=== PATIENT | female | born 1970 | race Caucasian/White ===

== ENCOUNTER → 2018-05-01 18:20 | Outpatient (CLI) | payer BC, SELFPAY ==
[2018-05-01 18:57] LABS: Appearance Urine UA CLEAR; Bilirubin Urine UA NEGATIVE (NEGATIVE); Color Urine UA YELLOW; Glucose Urine UA TRACE g/dL (Normal); Ketones Urine UA NEGATIVE (NEGATIVE); Leukocyte Esterase Urine UA NEGATIVE (NEGATIVE); Nitrite Urine UA POSITIVE (Negative); Occult Blood Urine UA NEGATIVE (Negative); Protein Urine UA NEGATIVE (Negative); Urobilinogen Urine UA 0.2 E.U./dL (0.2); pH Urine UA 6.5 (4.5-8.0)
[2018-05-01 18:59] LABS: Bacteria Urine None Seen
[2018-05-01 19:19] LABS: Culture Indicated Urine Specimen Cultured; RBC Urine 0-1/HPF (0-5/HPF); Squamous Epithelial Cell Urine 0-1 /HPF; WBC Urine 0-1/HPF (0-5/HPF)
== END ==
PROVIDERS: PCP Family Medicine; Visit Provider Family Medicine
DX: R39.9 Unspecified symptoms and signs involving the genitourinary system (principal)
CPT/HCPCS: 81003; 81015; 87086

== ENCOUNTER → 2018-07-10 08:18 | Outpatient (CLI) | payer BC, SELFPAY ==
[2018-07-10 09:08] LABS: Add Manual Diff / Slide Review NO; Basophils Absolute Auto 100 /uL (0-100); Eosinophils Absolute Auto 100 /uL (0-450); Hematocrit 40.1 % (36-46); Hemoglobin 13.4 g/dL (12.0-16.0); Lymphocytes Absolute Auto 1700 /uL (1100-4500); Lymphocytes Percent Auto 29.9 % (25-40); Mean Corpuscular HGB Conc 33.5 % (30-36); Mean Corpuscular Hemoglobin 29.9 PG (26-34); Mean Corpuscular Volume 89.4 fL (80-100); Monocytes Absolute Auto 300 /uL (0-900); Monocytes Percent Auto 5.9 % (3-14); Neutrophils Absolute Auto 3500 /uL (1500-7000); Neutrophils Percent Auto 62.2 % (50-75); Platelet Count 292 X10^3/uL (150-400); Red Blood Cell Count 4.48 X10^6/uL (4.0-5.2); White Blood Cell Count 5.6 X10^3/uL (4.5-11.0)
[2018-07-10 09:19] LABS: Alanine Aminotransferase 32 IU/L (9-52); Albumin 4.3 g/dL (3.5-5.0); Albumin Globulin Ratio 1.5 (1.0-2.8); Alkaline Phosphatase 51 U/L (38-126); Aspartate Aminotransferase 29 IU/L (14-36); BUN Creatinine Ratio 21.4 (6-22); Bilirubin Total 0.7 mg/dL (0.2-1.3); Blood Urea Nitrogen 15 mg/dL (7-17); Calcium 8.8 mg/dL (8.4-10.2); Carbon Dioxide 28 mmol/L (22-32); Chloride 103 mmol/L (98-107); Cholesterol 205 mg/dL (140-199); Estimated Glomerular Filt Rate > 60.0 mL/min (>60); Globulin 2.9 g/dL (1.7-4.1); Glucose 89 mg/dL (70-100); HDL Cholesterol 60 mg/dL (40-60); HEMOLYSIS < 15 (0-50); LDL Cholesterol Calculated 133 mg/dL (<100); Potassium 4.1 mmol/L (3.4-5.1); Sodium 139 mmol/L (137-145); Total Protein 7.2 g/dL (6.3-8.2); Triglycerides 61 mg/dL (35-150)
[2018-07-10 09:34] LABS: Follicle Stimulating Hormone 5.02 mIU/mL
[2018-07-10 09:54] LABS: Thyroid Stimulating Hormone 1.12 uIU/mL (0.47-4.68)
== END ==
PROVIDERS: PCP Family Medicine; Visit Provider Family Medicine
DX: F32.9 Major depressive disorder, single episode, unspecified (principal)
CPT/HCPCS: 36415; 80053; 80061; 83001; 84443; 85025

== ENCOUNTER → 2018-08-25 16:49 | Outpatient (CLI) | payer BC, SELFPAY ==
--- NOTE | 2018-08-25 | DI.MG.S_ITS ---
BILATERAL DIGITAL SCREENING MAMMOGRAM 3D/2D WITH CAD: 08/25/2018 CLINICAL: Routine screening. Family history of breast cancer. Comparison is made to exams dated: 09/28/2015 mammogram - [facility], 07/24/2017 [facility], and 07/14/2014 mammogram - [facility]. The tissue of both breasts is extremely dense, which lowers the sensitivity of mammography. Current study was also evaluated with a Computer Aided Detection (CAD) system. No significant masses, calcifications, or other findings are seen in either breast. There has been no significant interval change. IMPRESSION: NEGATIVE There is no mammographic evidence of malignancy. A 1 year screening mammogram is recommended. This exam was interpreted at Station ID: [id number]. NOTE: For mammograms, a report in lay terms will be sent to the patient. Approximately 15% of breast malignancies will not be visualized mammographically. In the management of a palpable breast mass, a negative mammogram must not discourage biopsy of a clinically suspicious lesion. Electronically Signed By: Shelby perea/oanh:08/25/2018 17:11:14 letter sent: Normal Exam ACR BI-RADS Category 1: Negative 3341F
== END ==
PROVIDERS: PCP Family Medicine; Visit Provider Family Medicine
DX: Z12.31 Encounter for screening mammogram for malignant neoplasm of breast (principal)
CPT/HCPCS: 77063; 77067

== ENCOUNTER → 2019-07-23 08:11 | Outpatient (CLI) | payer BC, SELFPAY ==
[2019-07-23 09:35] LABS: Hematocrit 42.7 % (36-46); Hemoglobin 14.5 g/dL (12.0-16.0); Mean Corpuscular HGB Conc 33.9 % (30-36); Mean Corpuscular Volume 88.3 fL (80-100); Platelet Count 261 X10^3/uL (150-400); Red Blood Cell Count 4.83 X10^6/uL (4.0-5.2); Red Cell Distribution Width 12.8 % (11.6-14.8); White Blood Cell Count 6.8 X10^3/uL (4.5-11.0)
[2019-07-23 09:52] LABS: Alanine Aminotransferase 12 IU/L (<35); Albumin 5.1 g/dL (3.5-5.0); Albumin Globulin Ratio 1.5 (1.0-2.8); Alkaline Phosphatase 53 U/L (38-126); Aspartate Aminotransferase 25 IU/L (14-36); BUN Creatinine Ratio 25.7 (6-22); Bilirubin Total 0.7 mg/dL (0.2-1.3); Blood Urea Nitrogen 18 mg/dL (7-17); Calcium 9.6 mg/dL (8.4-10.2); Carbon Dioxide 28 mmol/L (22-32); Chloride 104 mmol/L (98-107); Cholesterol 216 mg/dL (140-199); Estimated Glomerular Filt Rate > 60.0 mL/min (>60); Globulin 3.3 g/dL (1.7-4.1); Glucose 94 mg/dL (70-100); HDL Cholesterol 55 mg/dL (40-60); HEMOLYSIS < 15 (0-50); LDL Cholesterol Calculated 147 mg/dL (<100); Potassium 4.1 mmol/L (3.4-5.1); Sodium 139 mmol/L (137-145); Total Protein 8.4 g/dL (6.3-8.2); Triglycerides 68 mg/dL (35-150)
[2019-07-23 11:39] LABS: Urine N gonorrhoeae NOT DETECTED
[2019-07-23 11:51] LABS: Hepatitis B Surface Antigen NEGATIVE s/c (NEGATIVE)
[2019-07-23 11:56] LABS: Urine Chlamydia NOT DETECTED
[2019-07-23 12:10] LABS: HIV 1 & 2 Ab/Ag 4th Gen Combo NEGATIVE (NEGATIVE); Hep C Virus Ab w/Reflex Quant NEGATIVE s/c (NEGATIVE)
[2019-07-25 23:07] LABS: RPR Screen Nonreactive (Nonreactive)
[2019-07-26 14:38] LABS: Hepatitis B Core Antibody Nonreactive (Nonreactive)
== END ==
PROVIDERS: PCP Nurse Practitioner Family; Referring Provider Nurse Practitioner Family; Visit Provider Nurse Practitioner Family
DX: Z00.00 Encounter for general adult medical examination without abnormal findings (principal); Z20.2 Contact with and (suspected) exposure to infections with a predominantly sexual mode of transmission; Z13.6 Encounter for screening for cardiovascular disorders
CPT/HCPCS: 36415; 80053; 80061; 85027; 86592; 86704; 86803; 87340; 87389; 87491; 87591

== ENCOUNTER → 2019-11-18 12:40 | Outpatient (CLI) | payer BC, SELFPAY ==
--- NOTE | 2019-11-18 12:53 | DI.RAD.S_ITS ---
PROCEDURE: XR CHEST 2V INDICATIONS: Increasing SOB TECHNIQUE: 2 views of the chest were acquired. COMPARISON: None. FINDINGS: Surgical changes and devices: None. Lungs and pleura: Lungs are clear. No pleural effusions or pneumothorax. Mediastinum: Mediastinal contours are normal. Heart size is normal. Bones and chest wall: No suspicious bony abnormalities. Soft tissues appear unremarkable. IMPRESSION: No acute cardiopulmonary process demonstrated radiographically. Dictated by: Trevor Lutz M.D. on 11/18/2019 at 13:32 Approved by: Trevor Lutz M.D. on 11/18/2019 at 13:33
[2019-11-21 10:35] LABS: COVID19 Sendout Not Detected (Not Detected)
== END ==
PROVIDERS: PCP Nurse Practitioner Family; Referring Provider Nurse Practitioner; Visit Provider Nurse Practitioner
DX: R06.02 Shortness of breath (principal)
CPT/HCPCS: 71046; 87635

== ENCOUNTER → 2020-02-18 08:37 | Outpatient (CLI) | payer BC, SELFPAY ==
--- NOTE | 2020-02-18 08:38 | DI.MG.S_ITS ---
BILATERAL DIGITAL SCREENING MAMMOGRAM 3D/2D WITH CAD: 02/18/2020 CLINICAL: Routine screening. Family history of breast cancer. Comparison is made to exams dated: 08/25/2018 mammogram, 07/24/2017 mammogram - [facility], and 09/28/2015 mammogram - [facility]. The tissue of both breasts is extremely dense, which lowers the sensitivity of mammography. Current study was also evaluated with a Computer Aided Detection (CAD) system. No significant masses, calcifications, or other findings are seen in either breast. There has been no significant interval change. IMPRESSION: NEGATIVE There is no mammographic evidence of malignancy. A 1 year screening mammogram is recommended. This exam was interpreted at Station ID: [id number]. NOTE: For mammograms, a report in lay terms will be sent to the patient. Approximately 15% of breast malignancies will not be visualized mammographically. In the management of a palpable breast mass, a negative mammogram must not discourage biopsy of a clinically suspicious lesion. Electronically Signed By: Karlos borden/oanh:02/20/2020 07:59:48 letter sent: Normal Exam ACR BI-RADS Category 1: Negative 3341F
== END ==
PROVIDERS: PCP Nurse Practitioner Family; Referring Provider Nurse Practitioner Family; Visit Provider Nurse Practitioner Family
DX: Z12.31 Encounter for screening mammogram for malignant neoplasm of breast (principal); Z80.3 Family history of malignant neoplasm of breast
CPT/HCPCS: 77063; 77067

== ENCOUNTER → 2020-02-25 15:40 | Outpatient (CLI) | payer BC, SELFPAY ==
[2020-02-27 07:56] LABS: COVID19 Sendout Not Detected (Not Detect)
== END ==
PROVIDERS: PCP Nurse Practitioner Family; Visit Provider Physician Assistant
DX: Z01.812 Encounter for preprocedural laboratory examination (principal)
CPT/HCPCS: 87635

== ENCOUNTER 2020-02-28 12:42 | Day surgery (SDC) | payer BC, SELFPAY ==
[2020-02-28 12:57] VITALS: BP 99/67; PULSE 71; RESP 16; TEMP 36.4; O2SAT 99; BMI 19.5
[2020-02-28] MEDS: SODIUM CHLORIDE 0.9% 1,000 ML 200 ML IV ×2 (13:14→14:53)
--- NOTE | 2020-02-28 13:34 | P.HP_ITS ---
History of Present Illness History of Present Illness Date Patient Seen: 02/28/20 Time Patient Seen: 13:34 Chief complaint: [facility] [place]ative: This is a 49-year-old woman who is here for her 1st screening colonoscopy. She denies any symptoms of blood in the stool, melena, unexplained abdominal pain, unexplained weight loss, denies family history of colon cancer colon polyps. She says she is otherwise well. She does take metoprolol for PVCs. She takes medication for depression. She has had a . She denies any other significant medical problems on medical history. ROS: Thirteen system review is otherwise negative other than as mentioned below and in HPI. PE: GENERAL: Well groomed and cooperative. Appears stated age. Answers questions promptly and appropriately. Vital signs noted. HENT: Normocephalic, atraumatic. Hearing intact. EYES: Conjunctiva pink, sclera white, no periorbital swelling. CARDIOVASCULAR: Regular rate. No pedal edema. RESPIRATORY: Non-tachypneic, breathing comfortably on room air. GASTROINTESTINAL: Abdomen soft and non-distended GENITALURINARY: No flank tenderness. MUSCULOSKELETAL: Equal tone and mass bilaterally. SKIN: Warm, dry, soft, appropriate color for ethnicity. No other lesions, rashes, or wounds. NEURO: Alert and Oriented X 3. No gross sensory deficits, or cognitive issues. PSYCH: Appropriate affect and mood. Patient History Medical History Anxiety (Acute 2006) Depression (Acute 2006) Encounter for wellness examination in adult (Acute) Migraine without aura (Acute 1999) Possible exposure to STD (Acute) PVC (premature ventricular contraction) (Acute 2006) Surgical History Status post delivery (10/24/03) Family & Social History Family History Father Age: 77 Hyperlipidemia Grandfather Alzheimer's dementia without behavioral disturbance, unspecified timing of dementia onset Cerebrovascular accident (CVA), unspecified mechanism Grandmother Malignant neoplasm of female breast, unspecified laterality, unspecified site of breast Sister Age: 44 Anxiety Social History: household members spouse Tobacco & Substance use: Smoking Status Never smoker alcohol intake never Substance Use Type does not use Meds Home Medications and Allergies Home Medications Medication Instructions Recorded Confirmed Type valacyclovir 500 mg tablet 500 mg PO BID PRN #30 tab 07/20/19 02/28/20 Rx albuterol sulfate 90 mcg/actuation 2 puff INHALATION Q6H PRN #8 gram 11/22/19 02/28/20 Rx aerosol inhaler metoprolol tartrate 25 mg tablet 12.5 mg PO QDAY #45 tab 01/05/20 02/28/20 Rx sertraline 100 mg tablet 50 mg PO QDAY #45 tab 01/05/20 02/28/20 Rx Allergies Allergy/AdvReac Type Severity Reaction Status Date / Time aspartame [ASPARTAME] Allergy Unknown Verified 02/28/20 12:56 codeine [CODEINE] Allergy Unknown Verified 02/28/20 12:56 erythromycin base Allergy Unknown Verified 02/28/20 12:56 [ERYTHROMYCIN BASE] Exam Vital Signs (past 8 hours): - 02/28/20 12:57 Temperature 97.5 F L Pulse Rate 71 Respiratory Rate 16 Blood Pressure 99/67 Pulse Oximetry 99 Oxygen Delivery Method Room Air Oxygen Flow Rate 0 Assessment & Plan Assessment and plan (1) At average risk for colon cancer: Status: Acute Assessment & Plan narrative: Risks and benefits of screening colonoscopy and possible polypectomy were discussed with the patient including risk of bleeding, perforation, need for additional procedures, risks of anesthesia. The patient desires to proceed with the colonoscopy procedure. COVID-19 COVID-19 status: Negative Result date/Date tested (Pos, Neg/Pending): 02/25/20 Time Spent With Patient Time with patient: 15-24 minutes Quality VTE Deep Vein Thrombosis/Pulmonary Embolism Present on Admission: No
--- NOTE | 2020-02-28 13:38 | PM.OP.ENDO ---
Operative Date/Time/Diagnoses Date of procedure: 02/28/20 Time of procedure: 13:38 Pre-op diagnosis: Average risk for colon cancer Post-op diagnosis: other (Very tortuous colon, no polyps ) Procedure & Clinicians Study performed: Colonoscopy Procedural sedation performed by the endoscopist Same procedure as scheduled: Yes Indications: Average risk for colon cancer, first screening colonoscopy Surgeon: Shanda Wolf Procedure Notes SCOAP/Timeout: Performed Procedure in detail: The patient was brought to the room and placed in left lateral decubitus position with all bony prominences padded. A time-out was performed and then the patient was given procedural sedation starting with 2 mg of Versed and 100 mcg of fentanyl. An additional 50 micro g of fentanyl was given during the procedure. Vitals were monitored throughout the procedure and remained stable. Once adequately sedated, the procedure was begun. A rectal exam was performed revealing no abnormalities. The colonoscope was then introduced to the rectum and advanced to the cecum in the usual fashion. The cecum was identified by the appendiceal orifice, the mucosal tri-fold, and the ileocecal valve. The scope was then retracted while rotating side to side and examining each mucosal fold. The colon was very tortuous, with many redundant folds and turns. At the conclusion of the procedure retroflexion was performed and small grade 1-2 internal hemorrhoids without stigmata of bleeding were seen. The scope was then withdrawn from the rectum the procedure was concluded. The patient tolerated the procedure well and was transferred to the PACU in stable condition. Scope withdrawal time: 8 Sedation minutes: 20 Findings: other findings (Very tortuous colon, otherwise normal) Specimen(s): none sent Complications: none Impression: Tortuous colon, otherwise normal Post-procedure Recommendations: Colonscopy in 10 years (Unless concerning symptoms for colorectal disorder arise) Follow up: as needed Disposition: PACU
[2020-02-28] MEDS: MIDAZOLAM 5 MG/5 ML VIAL IV (13:39)
[2020-02-28] MEDS: fentaNYL 250 MCG/5 ML INJ IV (13:51)
[2020-02-28 14:06] VITALS: BP 94/57; PULSE 68; RESP 10; TEMP 36.4; O2SAT 97
[2020-02-28 14:10] VITALS: BP 92/60; PULSE 73; RESP 16; O2SAT 98
[2020-02-28 14:15] VITALS: BP 94/53; PULSE 68; RESP 14; TEMP 36.2; O2SAT 97
[2020-02-28 14:39] VITALS: BP 90/54; PULSE 64; RESP 16; TEMP 36.7; O2SAT 98
--- NOTE | 2020-02-28 14:40 | SUR.PHASEII ---
Patient's BP 90/54 but patient is asymptomatic and has hypotension on a normal basis, per patient. Tolerating juice and coffee. Will recheck BP prior to discharge.
--- NOTE | 2020-02-28 14:48 | SUR.PHASEII ---
Recheck of BP 85/57. Asymptomatic. Second bag of Normal saline started.
[2020-02-28 15:13] VITALS: BP 101/68; PULSE 73; RESP 15; O2SAT 100
== END 2020-02-28 15:15 | disposition home or self-care (01) ==
PROVIDERS: PCP Nurse Practitioner Family; Referring Provider Nurse Practitioner Family; Visit Provider Surgery
PROC: 0DJD8ZZ Inspection of Lower Intestinal Tract, Via Natural or Artificial Opening Endoscopic (ICD-10-PCS; CPT 45378; principal; 2020-02-28 13:45)
DX: Z12.11 Encounter for screening for malignant neoplasm of colon (principal); F32.9 Major depressive disorder, single episode, unspecified; K64.0 First degree hemorrhoids
CPT/HCPCS: 45378; 99152; J2250; J3010

== ENCOUNTER → 2021-01-04 08:19 | Outpatient (CLI) | payer BC, SELFPAY | PROVIDERS: PCP Nurse Practitioner Family; Visit Provider Nurse Practitioner | DX: N39.0 Urinary tract infection, site not specified (principal) | CPT/HCPCS: 87077; 87086; 87147 ==

== ENCOUNTER → 2021-02-25 08:47 | Outpatient (CLI) | payer BC, SELFPAY ==
[2021-02-25 09:28] LABS: Hematocrit 40.4 % (36-46); Hemoglobin 13.6 g/dL (12.0-16.0); Mean Corpuscular HGB Conc 33.6 % (30-36); Mean Corpuscular Hemoglobin 30.1 PG (26-34); Mean Corpuscular Volume 89.5 fL (80-100); Platelet Count 271 X10^3/uL (150-400); Red Blood Cell Count 4.52 X10^6/uL (4.0-5.2); Red Cell Distribution Width 12.9 % (11.6-14.8); White Blood Cell Count 6.2 X10^3/uL (4.5-11.0)
[2021-02-25 10:14] LABS: Alanine Aminotransferase 15 IU/L (<35); Albumin 4.5 g/dL (3.5-5.0); Albumin Globulin Ratio 1.8 (1.0-2.8); Alkaline Phosphatase 62 U/L (38-126); Aspartate Aminotransferase 24 IU/L (14-36); BUN Creatinine Ratio 24.7 (6-22); Bilirubin Total 0.4 mg/dL (0.2-1.3); Blood Urea Nitrogen 18 mg/dL (7-17); Calcium 9.4 mg/dL (8.4-10.2); Carbon Dioxide 27 mmol/L (22-32); Chloride 107 mmol/L (98-107); Cholesterol 214 mg/dL (140-199); Estimated Glomerular Filt Rate > 60.0 mL/min (>60); Globulin 2.5 g/dL (1.7-4.1); Glucose 91 mg/dL (70-100); HDL Cholesterol 52 mg/dL (40-60); HEMOLYSIS < 15 (0-50); LDL Cholesterol Calculated 145 mg/dL (<100); Potassium 4.3 mmol/L (3.4-5.1); Sodium 141 mmol/L (137-145); Triglycerides 87 mg/dL (35-150)
[2021-02-25 10:41] LABS: TSH w/ Reflex to FT4 1.23 uIU/mL (0.47-4.68)
== END ==
PROVIDERS: PCP Nurse Practitioner Family; Referring Provider Nurse Practitioner Family; Visit Provider Nurse Practitioner Family
DX: Z00.00 Encounter for general adult medical examination without abnormal findings (principal); F32.9 Major depressive disorder, single episode, unspecified; F41.9 Anxiety disorder, unspecified; Z13.6 Encounter for screening for cardiovascular disorders
CPT/HCPCS: 36415; 80053; 80061; 84443; 85027

== ENCOUNTER → 2021-03-22 08:07 | Outpatient (CLI) | payer BC, SELFPAY ==
--- NOTE | 2021-03-22 08:07 | DI.MG.S_ITS ---
BILATERAL DIGITAL SCREENING MAMMOGRAM 3D/2D WITH CAD: 03/22/2021 CLINICAL: Routine screening. Family history of breast cancer. Comparison is made to exams dated: 02/18/2020 mammogram, 07/24/2017 mammogram, and 08/25/2018 mammogram - [facility]. The tissue of both breasts is extremely dense, which lowers the sensitivity of mammography. Current study was also evaluated with a Computer Aided Detection (CAD) system. No significant masses, calcifications, or other findings are seen in either breast. There has been no significant interval change. IMPRESSION: NEGATIVE There is no mammographic evidence of malignancy. A 1 year screening mammogram is recommended. This exam was interpreted at Station ID: [id number]. NOTE: For mammograms, a report in lay terms will be sent to the patient. Approximately 15% of breast malignancies will not be visualized mammographically. In the management of a palpable breast mass, a negative mammogram must not discourage biopsy of a clinically suspicious lesion. Electronically Signed By: Piero marquez/oanh:03/22/2021 09:39:19 letter sent: Normal Exam ACR BI-RADS Category 1: Negative 3341F
== END ==
PROVIDERS: PCP Nurse Practitioner Family; Referring Provider Nurse Practitioner Family; Visit Provider Nurse Practitioner Family
DX: Z12.31 Encounter for screening mammogram for malignant neoplasm of breast (principal); Z80.3 Family history of malignant neoplasm of breast
CPT/HCPCS: 77063; 77067

== ENCOUNTER → 2021-09-17 13:24 | Outpatient (CLI) | payer BC, SELFPAY ==
--- NOTE | 2021-09-17 13:27 | DI.RAD.S_ITS ---
PROCEDURE: XR SHOULDER RT MIN 2V INDICATIONS: eval R shoulder pain/decrease ROM refractory to PT TECHNIQUE: 3 views of the shoulder were acquired. COMPARISON: None. FINDINGS: Bones: No fractures or dislocations. No suspicious bony lesions. Visualized ribs appear intact. Soft tissues: No suspicious soft tissue calcifications. IMPRESSION: No acute radiographic findings. Dictated by: Shelby Stanford M.D. on 09/17/2021 at 15:46 Approved by: Shelby Stanford M.D. on 09/17/2021 at 15:48
== END ==
PROVIDERS: PCP Nurse Practitioner Family; Referring Provider Registered Nurse Diabetes Educator; Visit Provider Registered Nurse Diabetes Educator
DX: M25.511 Pain in right shoulder (principal)
CPT/HCPCS: 73030

== ENCOUNTER → 2021-09-21 08:26 | Outpatient (CLI) | payer BC, SELFPAY ==
[2021-09-21 09:25] LABS: Hematocrit 37.8 % (36-46); Mean Corpuscular HGB Conc 34.4 % (30-36); Mean Corpuscular Hemoglobin 29.8 PG (26-34); Mean Corpuscular Volume 86.5 fL (80-100); Platelet Count 256 X10^3/uL (150-400); Red Blood Cell Count 4.38 X10^6/uL (4.0-5.2); Red Cell Distribution Width 13.4 % (11.6-14.8); White Blood Cell Count 5.4 X10^3/uL (4.5-11.0)
[2021-09-21 10:04] LABS: Alanine Aminotransferase 24 IU/L (<35); Albumin 4.9 g/dL (3.5-5.0); Albumin Globulin Ratio 1.6 (1.0-2.8); Alkaline Phosphatase 63 U/L (38-126); Aspartate Aminotransferase 30 IU/L (14-36); BUN Creatinine Ratio 25.3 (6-22); Bilirubin Total 0.7 mg/dL (0.2-1.3); Blood Urea Nitrogen 21 mg/dL (7-17); Calcium 9.2 mg/dL (8.4-10.2); Carbon Dioxide 30 mmol/L (22-32); Chloride 106 mmol/L (98-107); Cholesterol 265 mg/dL (140-199); Estimated Glomerular Filt Rate > 60 mL/min (>60); Glucose 96 mg/dL (70-100); HDL Cholesterol 56 mg/dL (40-60); HEMOLYSIS < 15 (0-50); LDL Cholesterol Calculated 189 mg/dL (<100); Sodium 142 mmol/L (137-145); Total Protein 7.9 g/dL (6.3-8.2); Triglycerides 101 mg/dL (35-150)
== END ==
PROVIDERS: PCP Nurse Practitioner Family; Referring Provider Registered Nurse Diabetes Educator; Visit Provider Registered Nurse Diabetes Educator
DX: Z00.00 Encounter for general adult medical examination without abnormal findings (principal); E78.2 Mixed hyperlipidemia; F32.9 Major depressive disorder, single episode, unspecified; F41.9 Anxiety disorder, unspecified
CPT/HCPCS: 36415; 80053; 80061; 85027

== ENCOUNTER → 2021-10-11 08:18 | Outpatient (CLI) | payer BC, SELFPAY ==
--- NOTE | 2021-10-11 | DI.RAD.S_ITS ---
PROCEDURE: FL SHOULDER INJECTION MR/CT RT INDICATIONS: RIGHT SHOULDER PAIN COMPARISON: [facility], MR, MR SHOULDER RT W CON, 10/11/2021, 9:07. TECHNIQUE: The indications, alternatives, benefits, risks, and complications of the procedure were explained to the patient. Written informed consent was obtained and placed in the chart. The shoulder was examined fluoroscopically and a site for needle placement chosen for entry into the glenohumeral joint from an anterior approach. The skin was prepped and draped in a sterile fashion, and 1% lidocaine infiltrated from skin down to joint capsule. A spinal needle was inserted into the glenohumeral joint, and a small amount of iodinated contrast media injected to confirm intra-articular placement of the needle tip. This was followed by approximately 12 mL dilute solution of a gadolinium containing MR contrast agent. The needle was removed and a dressing was applied. The patient was given postprocedural instructions and sent to the MR suite for MR imaging. FINDINGS: A single fluoroscopic spot image demonstrates intra-articular location of injected iodinated contrast. IMPRESSION: Successful fluoroscopically guided administration of dilute Gadolinium solution into the shoulder joint for MR arthrogram. Dictated by: Uziel Hill M.D. on 10/11/2021 at 10:32 Approved by: Uziel Hill M.D. on 10/11/2021 at 10:33
--- NOTE | 2021-10-11 08:19 | DI.MRI.S_ITS ---
PROCEDURE: MR SHOULDER RT W CON INDICATIONS: eval R shoulder pain/decrease ROM refractory to PT TECHNIQUE: After the administration of 12 mL of dilute intra-articular Gadolinium contrast, oblique coronal T1 and T2 spin echo with fat saturation, oblique sagittal T1 spin echo with and without fat saturation, oblique sagittal T2 fast spin echo with fat saturation, axial T1 spin echo with fat saturation through the shoulder. COMPARISON: [facility], CR, XR SHOULDER RT MIN 2V, 09/17/2021, 13:43. FINDINGS: Image quality: Excellent. Rotator cuff: There is mild T2 signal elevation within the supraspinatus and infraspinatus tendons at the humeral insertion sites extending to the musculotendinous junctions, indicating tendinopathy. Superimposed low-grade small bursal surface tear of the mid supraspinatus tendon at the humeral insertion site. Superimposed small intrasubstance low-grade tearing of the posterior supraspinatus tendon at the humeral insertion site. Superimposed low-grade partial-thickness intrasubstance tearing of the anterior infraspinatus tendon at the humeral insertion site. Subscapularis and teres minor tendons are intact. No rotator cuff atrophy. Bones and bursae: No bone marrow contusions or fractures. Mild acromioclavicular joint degeneration. The acromion demonstrates conventional anatomy, without an os acromiale. Small amount of subacromial fluid is present. Capsule and soft tissues: The labrum and glenohumeral ligaments appear intact. The long head of the biceps tendon demonstrates normal location and morphology. The rotator interval appears normal, without fibrosis. The coracohumeral ligament is of normal thickness. No intra-articular bodies. IMPRESSION: 1. Supraspinatus and infraspinatus tendinopathy with superimposed low-grade partial-thickness intrasubstance tears. No full-thickness rotator cuff tear. 2. Mild subacromial bursitis. 3. Mild acromioclavicular joint osteoarthritis. Dictated by: Uziel Hill M.D. on 10/11/2021 at 10:46 Approved by: Uziel Hill M.D. on 10/11/2021 at 10:48
== END ==
PROVIDERS: PCP Registered Nurse Diabetes Educator; Referring Provider Registered Nurse Diabetes Educator; Visit Provider Registered Nurse Diabetes Educator
DX: M25.511 Pain in right shoulder (principal); S46.811A Strain of other muscles, fascia and tendons at shoulder and upper arm level, right arm, initial encounter; M71.9 Bursopathy, unspecified; M19.011 Primary osteoarthritis, right shoulder
CPT/HCPCS: 23350; 73222; 77002

== ENCOUNTER → 2021-12-11 13:40 | Outpatient (CLI) | payer OTHER, SELFPAY ==
[2021-12-11 17:07] LABS: Follicle Stimulating Hormone 13.3 mIU/mL
== END ==
PROVIDERS: PCP Registered Nurse Diabetes Educator; Referring Provider Registered Nurse Diabetes Educator; Visit Provider Registered Nurse Diabetes Educator
DX: N92.6 Irregular menstruation, unspecified (principal)
CPT/HCPCS: 36415; 83001

== ENCOUNTER → 2022-03-22 08:37 | Outpatient (CLI) | payer OTHER, SELFPAY ==
--- NOTE | 2022-03-22 08:38 | DI.MG.S_ITS ---
BILATERAL DIGITAL SCREENING MAMMOGRAM 3D/2D WITH CAD: 03/22/2022 CLINICAL: Routine screening. Family history of breast cancer. Comparison is made to exams dated: 03/22/2021 mammogram, 02/18/2020 mammogram, 08/25/2018 mammogram, and 07/24/2017 mammogram - . Both breasts are extremely dense, which lowers the sensitivity of mammography (category d />75% glandular tissue). Current study was also evaluated with a Computer Aided Detection (CAD) system. No significant masses, calcifications, or other findings are seen in either breast. There has been no significant interval change. IMPRESSION: NEGATIVE There is no mammographic evidence of malignancy. A 1 year screening mammogram is recommended. Based on Tyrer-Cuzick model (a risk assessment model), the patient's lifetime risk is 29.1% and her 10 year risk is 8.2%. If a patient has an elevated risk, a more comprehensive evaluation should be considered and/or a referral to a genetic counselor. The [place] [employer], [employer], and NCCN Guidelines advise the consideration of Breast MRI as an adjunct to screening mammography in patients whose Lifetime risk to develop breast cancer is 20% or higher. This exam was interpreted at Station ID: [id number]. NOTE: For mammograms, a report in lay terms will be sent to the patient. Approximately 15% of breast malignancies will not be visualized mammographically. In the management of a palpable breast mass, a negative mammogram must not discourage biopsy of a clinically suspicious lesion. Electronically Signed By: Mitch null/oanh:03/24/2022 08:08:45 letter sent: Normal Exam ACR BI-RADS Category 1: Negative 3341F
== END ==
PROVIDERS: PCP Registered Nurse Diabetes Educator; Referring Provider Registered Nurse Diabetes Educator; Visit Provider Registered Nurse Diabetes Educator
DX: Z12.31 Encounter for screening mammogram for malignant neoplasm of breast (principal); Z80.3 Family history of malignant neoplasm of breast
CPT/HCPCS: 77063; 77067

== ENCOUNTER → 2022-05-22 09:50 | Outpatient (CLI) | payer OTHER, SELFPAY ==
[2022-05-22 11:02] LABS: Add Manual Diff / Slide Review NO; Basophils Absolute Auto 0 /uL (0-100); Basophils Percent Auto 0.8 % (0-2); Eosinophils Absolute Auto 100 /uL (0-450); Eosinophils Percent Auto 1.1 % (2-4); Hematocrit 39.2 % (36-46); Lymphocytes Absolute Auto 2100 /uL (1100-4500); Lymphocytes Percent Auto 38.3 % (25-40); Mean Corpuscular HGB Conc 33.1 % (30-36); Mean Corpuscular Volume 87.4 fL (80-100); Monocytes Absolute Auto 400 /uL (0-900); Monocytes Percent Auto 6.7 % (3-14); Neutrophils Absolute Auto 2800 /uL (1500-7000); Neutrophils Percent Auto 53.1 % (50-75); Platelet Count 254 X10^3/uL (150-400); Red Blood Cell Count 4.49 X10^6/uL (4.0-5.2); Red Cell Distribution Width 13.3 % (11.6-14.8); White Blood Cell Count 5.4 X10^3/uL (4.5-11.0)
[2022-05-22 11:21] LABS: Alanine Aminotransferase 24 IU/L (<35); Albumin 4.7 g/dL (3.5-5.0); Albumin Globulin Ratio 1.5 (1.0-2.8); Alkaline Phosphatase 63 U/L (38-126); Aspartate Aminotransferase 27 IU/L (14-36); BUN Creatinine Ratio 22.2 (6-22); Bilirubin Total 0.4 mg/dL (0.2-1.3); Blood Urea Nitrogen 16 mg/dL (7-17); Calcium 9.1 mg/dL (8.4-10.2); Carbon Dioxide 31 mmol/L (22-32); Chloride 102 mmol/L (98-107); Estimated Glomerular Filt Rate > 60 mL/min (>60); Globulin 3.2 g/dL (1.7-4.1); Glucose 94 mg/dL (70-100); HEMOLYSIS < 15 (0-50); Sodium 139 mmol/L (137-145); Total Protein 7.9 g/dL (6.3-8.2)
[2022-05-22 11:22] LABS: Hemoglobin A1C% w Est Avg Glu 5.3 % (4.0-6.0)
[2022-05-22 11:34] LABS: Follicle Stimulating Hormone 72.8 mIU/mL
[2022-05-22 13:18] LABS: Appearance Urine UA CLEAR; Bilirubin Urine UA NEGATIVE (NEGATIVE); Color Urine UA YELLOW; Glucose Urine UA NEGATIVE (Negative); Ketones Urine UA NEGATIVE (NEGATIVE); Leukocyte Esterase Urine UA NEGATIVE (NEGATIVE); Nitrite Urine UA NEGATIVE (Negative); Occult Blood Urine UA NEGATIVE (Negative); Protein Urine UA NEGATIVE (Negative); Urobilinogen Urine UA 0.2 E.U./dL (0.2)
[2022-05-22 13:43] LABS: Bacteria Urine Few (2-10); Culture Indicated Urine Cult Not Indicated; RBC Urine 0-1/HPF (0-5/HPF); WBC Urine 0-1/HPF (0-5/HPF); pH Urine UA 7.5 (4.5-8.0)
[2022-05-23 20:36] LABS: Cadmium, Blood None Detected ug/L (0.0-1.2); Lead, Blood < 1.0 ug/dL (0.0-3.4)
[2022-05-28 09:03] LABS: Arsenic < 1.0
== END ==
PROVIDERS: PCP Registered Nurse Diabetes Educator; Referring Provider Registered Nurse Diabetes Educator; Visit Provider Registered Nurse Diabetes Educator
DX: L75.0 Bromhidrosis (principal)
CPT/HCPCS: 36415; 80053; 81001; 82175; 82300; 83001; 83036; 83655; 83825; 84443; 85025

== ENCOUNTER → 2022-09-19 10:13 | Outpatient (CLI) | payer OTHER, SELFPAY ==
--- NOTE | 2022-09-19 10:13 | DI.MRI.S_ITS ---
BREAST MRI OF BOTH BREASTS: 09/19/2022 CLINICAL: High Risk screening MRI. PROCEDURE: MR BREAST BI WO/W CON INDICATIONS: high risk screen TECHNIQUE: The patient was placed prone in a dedicated breast imaging coil. Precontrast axial STIR and 3D FLASH without fat saturation sequences were obtained. Both before and after bolus injection of contrast, sequential 1-minute axial 3D FLASH with fat saturation sequences for 3 time points, with subtraction images and maximum intensity projections (MIP's) generated. Delayed sagittal FLASH images with fat saturation were also obtained. Computer-aided detection, including computer algorithm analysis of MRI image data for lesion detection and characterization, pharmacokinetic analysis, with further physician review for interpretation, was performed. COMPARISON: 03/22/22 mammogram FINDINGS: Image quality: Excellent. There is mild background parenchymal enhancement. Right breast: In the upper outer quadrant of the right breast, there is a 1.5 cm region of linear non mass enhancement that may represent background glandular tissue enhancement. See image 6/80, 14/45. A similar, less prominent region is seen in the lower outer quadrant as well, favored represent background enhancement (/54). No washout kinetics noted. No suspicious mass identified. Left breast: In the lower outer quadrant of the left breast, there is a 1.7 cm region of linear non mass enhancement that may represent background glandular tissue enhancement. See image 6/42, 16/79. No washout kinetics noted. No suspicious mass identified. Miscellaneous: Negative for suspicious lymph nodes. No significant findings in the anterior chest or partially seen upper abdomen. IMPRESSION: INCOMPLETE: NEEDS ADDITIONAL IMAGING EVALUATION Right breast: Upper outer quadrant linear non-mass enhancement measuring 1.5 cm (reference images 6/80, 14/45). Left breast: Lower outer quadrant linear non mass enhancement measuring 1.7 cm (reference image 6/42, 16/79). Both these areas are favored to represent prominent background parenchymal enhancement. However, a diagnostic mammogram and ultrasound of both regions are recommended to confirm there are no suspicious calcifications or underlying mass. BIRADS 0 COMMENT: The imaging literature indicates that a negative contrast breast MRI examination has a high sensitivity and a moderate specificity for detecting and excluding invasive carcinomas to a detection threshold of 3-5 mm; nonetheless, appropriate clinical and mammographic follow-up are recommended. MRI is not sensitive for detecting DCIS (ductal carcinoma in situ) and may not detect large invasive neoplasms that show only minimal enhancement such as mucinous carcinoma. If there are suspicious calcifications or clinically worrisome palpable masses, then biopsy should still be considered. Invasive neoplasms can be hidden by co-existent and benign enhancement caused by mastitis, hormone therapy effects, radiation therapy, , and recent biopsy or surgery. False positive examinations can occur in a number of circumstances, including breasts that have recently been subject to invasive procedures and those that contain atypical ductal hyperplasia, hormonally stimulated glandular tissue, fat necrosis, or radial scars. This exam was interpreted at Station ID: [id number]. Electronically Signed By: Chauncey Lugo M.D. lc/:09/19/2022 12:58:42 letter sent: Additional Imaging Needed ACR BI-RADS Category 0: Incomplete 3340F
== END ==
PROVIDERS: PCP Registered Nurse Diabetes Educator; Referring Provider Registered Nurse Diabetes Educator; Visit Provider Registered Nurse Diabetes Educator
DX: Z12.39 Encounter for other screening for malignant neoplasm of breast (principal); N64.89 Other specified disorders of breast; Z91.89 Other specified personal risk factors, not elsewhere classified
CPT/HCPCS: 77049; A9579

== ENCOUNTER → 2022-10-03 08:18 | Outpatient (CLI) | payer OTHER, SELFPAY ==
--- NOTE | 2022-10-03 08:19 | DI.US.S_ITS ---
LIMITED ULTRASOUND OF RIGHT BREAST: 10/03/2022 CLINICAL: Additional imaging to confirm no mass. Comparison is made to exams dated: 10/03/2022 mammogram, 09/19/2022 breast MRI, 03/22/2022 mammogram, 03/22/2021 mammogram, 02/18/2020 mammogram, and 08/25/2018 mammogram - [facility]. Color flow ultrasound of the right breast 10 o'clock region was performed. Tierney scale images of the real-time examination were reviewed. No significant abnormalities were seen sonographically in the right breast. IMPRESSION: NEGATIVE There is no sonographic evidence of malignancy. There is no abnormality seen in the right breast to correspond with the breast MRI finding which is consistent with normal fibroglandular tissue. Return to annual mammogram and annual breast MRI screening schedule is recommended. Future imaging is recommended as follows: 03/23/2023 screening mammogram. This exam was interpreted at Station ID: [id number]. Electronically Signed By: Piero Gramajo M.D. ar/:10/03/2022 12:43:06 Ultrasound BI-RADS: 1 Negative
--- NOTE | 2022-10-03 08:19 | DI.US.S_ITS ---
LIMITED ULTRASOUND OF LEFT BREAST: 10/03/2022 CLINICAL: Additional imaging to confirm no mass. Comparison is made to exams dated: 10/03/2022 ultrasound, 10/03/2022 mammogram, 09/19/2022 breast MRI, 03/22/2022 mammogram, 03/22/2021 mammogram, and 02/18/2020 mammogram - [facility]. Color flow ultrasound of the left breast 4 o'clock region was performed. Tierney scale images of the real-time examination were reviewed. There is a benign 0.5 cm x 0.5 cm x 0.4 cm oval mass with an indistinct and circumscribed margin in the left breast at 4 o'clock posterior depth 5 cm from the nipple. This oval mass is hypoechoic with posterior acoustic enhancement. A non-enhancing cyst is seen in this location on the prior MRI. Color flow imaging demonstrates that there is no vascularity present. Fibroglandular tissue but no mass is seen corresponding to the non-mass enhancement seen on the prior MRI. IMPRESSION: BENIGN There is no sonographic evidence of malignancy. The 0.5 cm x 0.5 cm x 0.4 cm oval mass in the left breast is consistent with a complicated cyst and is benign. Return to annual mammogram and annual breast MRI screening schedule is recommended. Future imaging is recommended as follows: 03/23/2023 screening mammogram. This exam was interpreted at Station ID: [id number]. Electronically Signed By: Piero Gramajo M.D. ar/:10/03/2022 12:41:33 letter sent: Normal Exam Ultrasound BI-RADS: 2 Benign
--- NOTE | 2022-10-03 08:19 | DI.MG.S_ITS ---
BILATERAL DIGITAL DIAGNOSTIC MAMMOGRAM 3D/2D: 10/03/2022 CLINICAL: F/u MRI. Comparison is made to exams dated: 09/19/2022 breast MRI, 03/22/2022 mammogram, 03/22/2021 mammogram, and 02/18/2020 mammogram - [facility]. Both breasts are extremely dense, which lowers the sensitivity of mammography (category d />75% glandular tissue). No significant masses, calcifications, or other findings are seen in either breast. IMPRESSION: INCOMPLETE: NEEDS ADDITIONAL IMAGING EVALUATION There is no abnormality seen in the right breast to correspond with the breast MRI finding in the upper outer quadrant, however, ultrasound is recommended. There is no abnormality seen in the left breast to correspond with the breast MRI finding in the lower outer quadrant, however, ultrasound is recommended. Based on Tyrer-Cuzick model (a risk assessment model), the patient's lifetime risk is 29.5% and her 10 year risk is 8.8%. If a patient has an elevated risk, a more comprehensive evaluation should be considered and/or a referral to a genetic counselor. The [place] [employer], [employer], and NCCN Guidelines advise the consideration of Breast MRI as an adjunct to screening mammography in patients whose Lifetime risk to develop breast cancer is 20% or higher. This exam was interpreted at Station ID: [id number]. NOTE: For mammograms, a report in lay terms will be sent to the patient. Approximately 15% of breast malignancies will not be visualized mammographically. In the management of a palpable breast mass, a negative mammogram must not discourage biopsy of a clinically suspicious lesion. Electronically Signed By: Piero Gramajo M.D. ar/:10/03/2022 12:37:56 ACR BI-RADS Category 0: Incomplete [id number]
== END ==
PROVIDERS: PCP Registered Nurse Diabetes Educator; Referring Provider Registered Nurse Diabetes Educator; Visit Provider Registered Nurse Diabetes Educator
DX: Z91.89 Other specified personal risk factors, not elsewhere classified (principal); N63.23 Unspecified lump in the left breast, lower outer quadrant; R92.8 Other abnormal and inconclusive findings on diagnostic imaging of breast
CPT/HCPCS: 76642; 77066; G0279

== ENCOUNTER → 2023-03-13 07:43 | Outpatient (CLI) | payer OTHER, SELFPAY ==
--- NOTE | 2023-03-13 07:43 | DI.US.S_ITS ---
PROCEDURE: US PELVIC COMPLETE INDICATIONS: POSTMENOPAUSAL BLEEDING 3 TIMES SINCE STARTING HRT. TECHNIQUE: Real-time scanning was performed of the pelvic organs, with image documentation. Additional endovaginal scanning was necessary due to incomplete visualization of the adnexal and endometrial structures by transabdominal scanning. COMPARISON: None. FINDINGS: Uterus: Uterus is anteverted and normal in size at 8.0 x 4.7 x 3.8 cm. The myometrium is heterogenous. The endometrium measures 2.6 mm combined thickness. Small cysts endometrial cyst measures 3 mm. Left anterior subserosal fibroid measures 1.1 x 1.1 x 10.8 cm Ovaries: The right ovary measures 2.0 x 1.7 x 0.9 cm, with a calculated ovarian volume of 1.5 cc. The left ovary measures 2.4 x 1.7 x 0.9 cm, with a calculated ovarian volume of 1.8 cc. The ovaries have a normal sonographic appearance. Dilated adnexal veins noted measuring up to 8 mm without Valsalva. Small 3-4 mm hypoechoic hyperechoic nodule in the left ovary, likely small hemorrhagic cyst. Other: No pathologic free abdominal or pelvic fluid. IMPRESSION: No endometrial thickening appreciated. Small subserosal fibroid, 1.1 cm Approved by: Ashok Myles M.D. on 03/19/2023 at 14:39
== END ==
PROVIDERS: PCP Registered Nurse Diabetes Educator; Referring Provider Registered Nurse Diabetes Educator; Visit Provider Registered Nurse Diabetes Educator
DX: N95.0 Postmenopausal bleeding (principal); D25.2 Subserosal leiomyoma of uterus
CPT/HCPCS: 76830; 76856

== ENCOUNTER → 2023-07-11 08:40 | Outpatient (CLI) | payer OTHER, SELFPAY ==
[2023-07-11 10:05] LABS: Hematocrit 37.7 % (36-46); Hemoglobin 12.9 g/dL (12.0-16.0); Mean Corpuscular HGB Conc 34.1 % (30-36); Mean Corpuscular Hemoglobin 30.2 PG (26-34); Mean Corpuscular Volume 88.5 fL (80-100); Platelet Count 256 X10^3/uL (150-400); Red Blood Cell Count 4.26 X10^6/uL (4.0-5.2); White Blood Cell Count 5.8 X10^3/uL (4.5-11.0)
[2023-07-11 10:26] LABS: Alanine Aminotransferase 16 IU/L (<35); Albumin 4.2 g/dL (3.5-5.0); Albumin Globulin Ratio 1.3 (1.0-2.8); Alkaline Phosphatase 62 U/L (38-126); Aspartate Aminotransferase 24 IU/L (14-36); BUN Creatinine Ratio 25.6 (6-22); Bilirubin Total 0.6 mg/dL (0.2-1.3); Blood Urea Nitrogen 21 mg/dL (7-17); Calcium 8.9 mg/dL (8.4-10.2); Carbon Dioxide 25 mmol/L (22-32); Chloride 105 mmol/L (98-107); Cholesterol 253 mg/dL (140-199); Estimated Glomerular Filt Rate > 60 mL/min (>60); Globulin 3.2 g/dL (1.7-4.1); Glucose 92 mg/dL (70-100); HDL Cholesterol 46 mg/dL (40-60); HEMOLYSIS < 15 (0-50); LDL Cholesterol Calculated 187 mg/dL (<100); Potassium 4.4 mmol/L (3.4-5.1); Sodium 138 mmol/L (137-145); Total Protein 7.4 g/dL (6.3-8.2); Triglycerides 100 mg/dL (35-150)
[2023-07-11 10:55] LABS: TSH w/ Reflex to FT4 0.86 uIU/mL (0.47-4.68)
== END ==
PROVIDERS: PCP Registered Nurse Diabetes Educator; Referring Provider Registered Nurse Diabetes Educator; Visit Provider Registered Nurse Diabetes Educator
DX: Z00.00 Encounter for general adult medical examination without abnormal findings (principal); E78.2 Mixed hyperlipidemia
CPT/HCPCS: 80053; 80061; 84443; 85027

== ENCOUNTER → 2023-09-22 06:48 | Outpatient (CLI) | payer OTHER, SELFPAY ==
--- NOTE | 2023-09-22 06:49 | DI.US.S_ITS ---
PROCEDURE: US PELVIC COMPLETE INDICATIONS: PMB TECHNIQUE: Real-time scanning was performed of the pelvic organs, with image documentation. Additional endovaginal scanning was necessary due to incomplete visualization of the adnexal and endometrial structures by transabdominal scanning. COMPARISON: [facility], US, US PELVIC COMPLETE, 03/13/2023, 8:02. FINDINGS: Uterus: Uterus is anteverted and normal in size at 7.9 x 3.8 x 4.7 cm. The endometrium measures 3.8 mm combined thickness. There are 2 foci within the uterus with heterogeneous echogenicity. The mid anterior submucosal focus measuring 8 x 10 x 15 mm. This appears partially cystic. A 2nd left anterior intramural focus is present measuring 11 x 8 x 14 mm. Ovaries: The right ovary measures 2.3 x 1.2 x 0.8 cm, with a calculated ovarian volume of 1.2 cc. The left ovary measures 1.8 x 1.1 x 1.2 cm, with a calculated ovarian volume of 1.2 cc. The ovaries have a normal sonographic appearance. Less than 12 follicles can be seen in each ovary. No adnexal masses are seen. Other: No pathologic free abdominal or pelvic fluid. IMPRESSION: Uterine fibroids are present. Endometrium appears within normal limits. We strive to produce accurate, complete, and clear reports of imaging services. To assist us in improving patient care, this report was composed using standard report templates and voice recognition software. Therefore, it may contain abnormal punctuation, insertions and/or omissions. Occasional wrong-word or sound-alike substitutions may occur. Though we review the report and make efforts to correct it, we do recommend that the report be read carefully in proper context to recognize any text inaccuracies. Dictated by: Stefanie Seth M.D. on 09/22/2023 at 8:46 Approved by: Stefanie Seth M.D. on 09/22/2023 at 9:13
== END ==
PROVIDERS: PCP Registered Nurse Diabetes Educator; Referring Provider Obstetrics & Gynecology; Visit Provider Obstetrics & Gynecology
DX: N92.6 Irregular menstruation, unspecified (principal); D25.1 Intramural leiomyoma of uterus; D25.0 Submucous leiomyoma of uterus
CPT/HCPCS: 76830; 76856

== ENCOUNTER → 2023-11-06 08:16 | Outpatient (CLI) | payer OTHER, SELFPAY ==
--- NOTE | 2023-11-06 08:16 | DI.RAD.S_ITS ---
PROCEDURE: FL BARIUM SWALLOW INDICATIONS: dysphagia COMPARISON: [facility], , US PELVIC COMPLETE, 09/22/2023, 6:58. FINDINGS: Function: There is normal esophageal peristalsis. No elicited gastroesophageal reflux. There is normal transit of a calibrated barium tablet through the esophagus into the stomach. Morphology: Air-contrast images demonstrate normal mucosal morphology. Single contrast views show no esophageal strictures, extrinsic mass effects, or diverticula. Limited images of the stomach demonstrate normal appearance. IMPRESSION: Normal barium swallow exam. A cause for dysphagia is not identified. Dictated by: Morena Chen M.D. on 11/06/2023 at 14:42 Approved by: Morena Chen M.D. on 11/06/2023 at 14:46
== END ==
LOC: RAD 08:16
PROVIDERS: PCP Registered Nurse Diabetes Educator; Referring Provider Student in an Organized Health Care Education/Training Program; Visit Provider Student in an Organized Health Care Education/Training Program
DX: R13.10 Dysphagia, unspecified (principal)
CPT/HCPCS: 74220

== ENCOUNTER → 2024-02-02 16:07 | Outpatient (CLI) | payer OTHER, MEDICAID, SELFPAY ==
--- NOTE | 2024-02-02 16:08 | DI.RAD.S_ITS ---
PROCEDURE: XR FOOT RT MIN 3V INDICATIONS: twisted ankle inversion 3 weeks ago, pain lateral foot/heel TECHNIQUE: 3 views of the foot were acquired. COMPARISON: None. FINDINGS: Bones: There are no osseous abnormalities Joints: The joint spaces are normal in width and alignment without arthritic change. Soft tissues: Mild plantar soft tissue swelling of the forefoot midfoot noted. IMPRESSION: Mild plantar soft tissue swelling of the forefoot and midfoot-likely posttraumatic edema Dictated by: Juan Carlos Scott M.D. on 02/03/2024 at 6:50 Approved by: Juan Carlos Scott M.D. on 02/03/2024 at 6:52
== END ==
PROVIDERS: PCP Registered Nurse Diabetes Educator; Referring Provider Physician Assistant; Visit Provider Physician Assistant
DX: S96.911A Strain of unspecified muscle and tendon at ankle and foot level, right foot, initial encounter (principal); M79.89 Other specified soft tissue disorders; X58.XXXA Exposure to other specified factors, initial encounter
CPT/HCPCS: 73630

== ENCOUNTER → 2024-02-29 16:10 | Outpatient (CLI) | payer OTHER, MEDICAID, SELFPAY ==
--- NOTE | 2024-02-29 | DI.MG.S_ITS ---
BILATERAL DIGITAL SCREENING MAMMOGRAM 3D/2D WITH CAD: 02/29/2024 CLINICAL: Routine screening. Family history of breast cancer. Comparison is made to exams dated: 10/03/2022 mammogram, 03/22/2022 mammogram, 03/22/2021 mammogram, and 02/18/2020 mammogram - [facility]. The breasts are extremely dense, which lowers the sensitivity of mammography (category d />75% glandular tissue). Current study was also evaluated with a Computer Aided Detection (CAD) system. No significant masses, calcifications, or other findings are seen in either breast. There has been no significant interval change. IMPRESSION: NEGATIVE There is no mammographic evidence of malignancy. A 1 year screening mammogram is recommended. Based on Tyrer-Cuzick model (a risk assessment model), the patient's lifetime risk is 29.9% and her 10 year risk is 9.4%. If a patient has an elevated risk, a more comprehensive evaluation should be considered and/or a referral to a genetic counselor. The [place] [employer], [place] [employer], and NCCN Guidelines advise the consideration of Breast MRI as an adjunct to screening mammography in patients whose Lifetime risk to develop breast cancer is 20% or higher. This exam was interpreted at Station ID: [id number]. NOTE: For mammograms, a report in lay terms will be sent to the patient. Approximately 15% of breast malignancies will not be visualized mammographically. In the management of a palpable breast mass, a negative mammogram must not discourage biopsy of a clinically suspicious lesion. Electronically Signed By: Mitch null/oanh:03/01/2024 09:37:08 letter sent: Normal Exam ACR BI-RADS Category 1: Negative
== END ==
PROVIDERS: PCP Registered Nurse Diabetes Educator; Referring Provider Registered Nurse Diabetes Educator; Visit Provider Registered Nurse Diabetes Educator
DX: Z12.31 Encounter for screening mammogram for malignant neoplasm of breast (principal); Z80.3 Family history of malignant neoplasm of breast; R92.343 Mammographic extreme density, bilateral breasts
CPT/HCPCS: 77063; 77067

== ENCOUNTER 2024-08-29 14:35 | Observation (INO) | payer OTHER, SELFPAY ==
[2024-08-29] VITALS (8 sets, daily range): BP systolic 95–113; BP diastolic 53–77; PULSE 68–76; RESP 11–18; TEMP 36.2–37.1; O2SAT 97–100; BMI 21.8
--- NOTE | 2024-08-29 14:44 | DI.RAD.S_ITS ---
PROCEDURE: XR FINGER LT MIN 2V INDICATIONS: cut self with branch maykel TECHNIQUE: AP hand, 2 views of the 3rd finger(s) acquired. COMPARISON: None. FINDINGS/IMPRESSION: Comminuted, displaced fracture of the 3rd phalanx tuft. Dictated by: Armond Leonard M.D. on 08/29/2024 at 15:06 Approved by: Armond Leonard M.D. on 08/29/2024 at 15:07
[2024-08-29] MEDS: METOCLOPRAMIDE HCL 5 MG TABLET 10 MG PO (15:03)
[2024-08-29] MEDS: OXYCODONE/ACETAMINOPHEN 5/325 TABLET 1 TAB PO (15:04)
--- NOTE | 2024-08-29 15:33 | ED.UPPEXIN ---
HPI - Extremity Injury (Upper) <Rob Leavitt PA-C - Last Filed: 08/30/24 11:53> General Chief Complaint: Extremity Injury, Upper Stated Complaint: finger laceration Time Seen by Provider: 08/29/24 14:57 Source: patient Mode of arrival: Ambulatory History of Present Illness HPI narrative: 54-year-old female with past medical history dyslipidemia, ADHD, autism spectrum disorder, anxiety, depression, migraine presents to the ED status post a left middle finger injury sustained just prior to arrival. Patient was using a hand operated casket trimmer, when she accidentally injured the tip of her left middle finger. Patient is right-hand dominant. Patient states last tetanus is unknown. No numbness, tingling, weakness. Patient is in 02/24 pain. Related Data Home Medications Medication Instructions Recorded Confirmed phytosterol 300 mg-pantethine 100 cap PO .qd 08/05/2225 mg capsule (CholestOff Complete) Previous Rx's Medication Instructions Recorded phenazopyridine 100 mg tablet 200 mg (2 x 100 mg) PO TID PRN 01/04/21 (Pyridium) pain 6 doses #6 tabs albuterol sulfate 90 mcg/actuation 2 puff inhalation Q6H PRN 09/14/23 aerosol inhaler shortness of breath or wheezing #8 grams progesterone micronized 200 mg 200 mg PO BEDTIME #90 caps 09/24/23 capsule (Prometrium) escitalopram oxalate 20 mg tablet 20 mg PO DAILY #90 tabs 01/02/24 (Lexapro) estradiol 1 mg tablet 1 mg PO DAILY #90 tabs 02/15/24 metoprolol tartrate 25 mg tablet 12.5 mg (1/2 x 25 mg) PO DAILY #45 02/15/24 tabs valacyclovir 500 mg tablet 500 mg PO BID #30 tabs 02/29/24 (Valtrex) atomoxetine 40 mg capsule 40 mg PO BID ADHD #60 caps 04/22/24 buspirone 10 mg tablet 10 mg PO BID #60 tabs 07/01/24 hydrocodone 5 mg-acetaminophen 325 1 tab PO Q4HR PRN Pain, Moderate 08/29/24 mg tablet (4-6) #20 tabs Allergies Allergy/AdvReac Type Severity Reaction Status Date / Time aspartame [ASPARTAME] Allergy Unknown Verified 02/15/24 09:01 codeine [CODEINE] Allergy Unknown Verified 02/15/24 09:01 erythromycin base Allergy Unknown Verified 02/15/24 09:01 [ERYTHROMYCIN BASE] hydroxyzine AdvReac Intermediate drowsiness Verified 02/15/24 09:01 Review of Systems <Rob Leavitt PA-C - Last Filed: 08/30/24 11:53> Constitutional Constitutional: Denies chills, Denies fatigue, Denies fever(s), Denies frequent falls, Denies lethargy and Denies weakness Eyes Eyes: Denies change in vision, Denies eye discharge, Denies irritation and Denies loss of vision ENT Ears, Nose, Mouth, and Throat: Denies change in voice, Denies dizziness, Denies neck pain, Denies sore throat and Denies throat swelling Cardiovascular Cardiovascular: Denies chest pain, Denies irregular heart rhythm, Denies lightheadedness, Denies palpitations, Denies dyspnea, Denies dyspnea on exertion and Denies orthopnea Respiratory Respiratory: Denies cough, Denies dyspnea, Denies dyspnea on exertion and Denies wheezing Gastrointestinal Gastrointestinal: Denies abdominal pain, Denies change in bowel habits, Denies diarrhea, Denies nausea and Denies vomiting Musculoskeletal Musculoskeletal: Denies neck pain and Denies numbness Integumentary/Breasts Skin/Breast: Denies pruritus, Denies erythema, Denies rash and Reports wounds Comments: Left middle fingertip injury Neurologic Neurologic: Denies behavioral changes, Denies confusion, Denies dizziness, Denies frequent falls, Denies loss of vision, Denies numbness and Denies weakness Psychiatric Psychiatric: Denies anxiety, Denies behavioral changes, Denies confusion, Denies depression, Denies homicidal ideation and Denies suicidal ideation Endocrine Endocrine: Denies fatigue, Denies flushing and Denies palpitations Hematologic/Lymphatic Hematologic/Lymphatic: Denies easy bruising Allergic/Immunologic Allergic/Immunologic: Denies urticaria, Denies throat swelling and Denies wheezing Patient History <Rob Leavitt PA-C - Last Filed: 08/30/24 11:53> Medical History Dyslipidemia Postmenopausal HRT (hormone replacement therapy) Autism spectrum disorder 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, requiring support (level 1) ADHD, predominantly inattentive type Increased risk of breast cancer Mixed hyperlipidemia (02/2021) Anxiety (2007) Depression (2007) PVC (premature ventricular contraction) (2006) Encounter for wellness examination in adult Migraine without aura (1999) Possible exposure to STD Surgical History Status post delivery (10/24/03) Family History Father Age: 81 Hyperlipidemia Detached retina Suspected autism disorder Grandfather Alzheimer's dementia without behavioral disturbance, unspecified timing of dementia onset Cerebrovascular accident (CVA), unspecified mechanism Grandmother Malignant neoplasm of female breast, unspecified laterality, unspecified site of breast Cardiac arrhythmia Hypotension Sister Age: 48 Anxiety Skin cancer Grandmother Suspected autism disorder Memory deficit Social History household members: significant other Smoking Status: Never smoker alcohol intake: current Smoking Status: Never smoker Exam <Rob Leavitt PA-C - Last Filed: 08/30/24 11:53> Narrative Exam Narrative: Const General:?cooperative, healthy appearing and comfortable [facility] Head:?normal to inspection Ears:?hearing grossly normal bilaterally Nose:?external nose normal Face and sinus:?normal facial exam and sinuses nontender Mouth:?oral mucosae normal Throat:?posterior oropharynx normal Eyes General:?appearance normal, both eyes and all related structures Neck Neck:?normal visual inspection and no lymphadenopathy noted Resp Effort & Inspection:?normal respiratory effort Auscultation:?clear to auscultation bilaterally Cardio Rate:?regular rate Rhythm:?regular rhythm Musculoskeletal/integumentary Left middle fingertip appears to be attached by a very a very small piece of tissue on the dorsal aspect. Most consistent with a fingertip amputation. Bleeding controlled with pressure. Neurovascularly intact. Neuro General:?patient alert, patient awake and patient oriented x3 Initial Vital Signs Initial Vital Signs: Vital Signs Temperature 98.7 F 08/29/24 14:37 Pulse Rate 73 08/29/24 14:37 Respiratory Rate 18 08/29/24 14:37 Blood Pressure 104/53 L 08/29/24 14:37 Pulse Oximetry 98 08/29/24 14:37 Oxygen Delivery Method Room Air 08/29/24 14:37 <Danna Parsons DO - Last Filed: 08/30/24 19:05> Initial Vital Signs Initial Vital Signs: Vital Signs Temperature 98.7 F 08/29/24 14:37 Pulse Rate 73 08/29/24 14:37 Respiratory Rate 18 08/29/24 14:37 Blood Pressure 104/53 L 08/29/24 14:37 Pulse Oximetry 98 08/29/24 14:37 Oxygen Delivery Method Room Air 08/29/24 14:37 Course <Rob Leavitt PA-C - Last Filed: 08/30/24 11:53> Orders Ordered: Discontinued Medications Hydrocodone Bitart/Acetaminophen (Hydrocodone/Acet 5/325 Prepack) 1 bottle MISC DIRECTED ONE Stop: 08/29/24 23:24 Last Admin: 08/30/24 00:05 Dose: Not Given Documented By: IF Hydrocodone Bitart/Acetaminophen (Hydrocodone/Acet 5/325 Tablet) 1 tab PO Q4HR PRN PRN Reason: Pain, Moderate (4-6) Bupivacaine HCl (Bupivacaine 0.5% (Pf) 30 Ml Vial) 30 ml INJ INTRA-OP ONE Stop: 08/29/24 22:17 Last Admin: 08/29/24 22:50 Dose: 15 ml Documented By: BEVERLY Diphtheria/Tetanus/Acell Pertussis (Tet,Diph,Pertuss(Acell),Vac/Pf 0.5 Ml Syringe) 0.5 ml IM .ONCE ONE Stop: 08/29/24 15:54 Last Admin: 08/29/24 16:17 Dose: 0.5 ml Documented By: SPF Hydromorphone HCl (Hydromorphone 1 Mg Inj) 1 mg IV NOW ONE Stop: 08/29/24 16:03 Last Admin: 08/29/24 16:12 Dose: 1 mg Documented By: SPF Cefazolin Sodium 2 gm/ Sodium (Chloride) 100 mls @ 200 mls/hr IV NOW ONE Stop: 08/29/24 16:33 Last Infusion: 08/29/24 17:12 Dose: Infused Documented By: Admin: 08/29/24 16:32 Dose: 200 mls/hr Documented By: SPF Acetaminophen (Ofirmev) 1,000 mg in 100 mls @ 400 mls/hr IV NOW ONE Stop: 08/29/24 19:03 Last Infusion: 08/29/24 20:00 Dose: Infused Documented By: Admin: 08/29/24 19:08 Dose: 400 mls/hr Documented By: SPF Lactated Ringer's (Lactated Ringers) 1,000 mls @ 42 mls/hr IV NOW ONE Stop: 08/30/24 19:32 Last Infusion: 08/29/24 23:47 Dose: Infused Documented By: Admin: 08/29/24 19:45 Dose: 42 mls/hr Documented By: TC Cefazolin Sodium/Dextrose (Ancef) 100 mls @ 200 mls/hr IV NOW ONE Stop: 08/29/24 22:46 Last Admin: 08/29/24 22:30 Dose: 200 mls/hr Documented By: PILAR Metoclopramide HCl (Metoclopramide Hcl 5 Mg Tablet) 10 mg PO NOW ONE Stop: 08/29/24 15:00 Last Admin: 08/29/24 15:03 Dose: 10 mg Documented By: SPF Oxycodone/Acetaminophen (Oxycodone/Acetaminophen 5/325 Tablet) 1 tab PO NOW ONE Stop: 08/29/24 14:58 Last Admin: 08/29/24 15:04 Dose: 1 tab Documented By: SPF Vital Signs Vital signs: Vital Signs - 8 hr 08/29/24 14:37 Temperature 98.7 F Pulse Rate 73 Respiratory Rate 18 Blood Pressure 104/53 L Pulse Oximetry 98 Oxygen Delivery Method Room Air <Danna Parsons, - Last Filed: 08/30/24 19:05> Orders Ordered: Discontinued Medications Hydrocodone Bitart/Acetaminophen (Hydrocodone/Acet 5/325 Prepack) 1 bottle MISC DIRECTED ONE Stop: 08/29/24 23:24 Last Admin: 08/30/24 00:05 Dose: Not Given Documented By: IF Hydrocodone Bitart/Acetaminophen (Hydrocodone/Acet 5/325 Tablet) 1 tab PO Q4HR PRN PRN Reason: Pain, Moderate (4-6) Bupivacaine HCl (Bupivacaine 0.5% (Pf) 30 Ml Vial) 30 ml INJ INTRA-OP ONE Stop: 08/29/24 22:17 Last Admin: 08/29/24 22:50 Dose: 15 ml Documented By: MW Diphtheria/Tetanus/Acell Pertussis (Tet,Diph,Pertuss(Acell),Vac/Pf 0.5 Ml Syringe) 0.5 ml IM .ONCE ONE Stop: 08/29/24 15:54 Last Admin: 08/29/24 16:17 Dose: 0.5 ml Documented By: LIT Hydromorphone HCl (Hydromorphone 1 Mg Inj) 1 mg IV NOW ONE Stop: 08/29/24 16:03 Last Admin: 08/29/24 16:12 Dose: 1 mg Documented By: SPF Cefazolin Sodium 2 gm/ Sodium (Chloride) 100 mls @ 200 mls/hr IV NOW ONE Stop: 08/29/24 16:33 Last Infusion: 08/29/24 17:12 Dose: Infused Documented By: Admin: 08/29/24 16:32 Dose: 200 mls/hr Documented By: SPF Acetaminophen (Ofirmev) 1,000 mg in 100 mls @ 400 mls/hr IV NOW ONE Stop: 08/29/24 19:03 Last Infusion: 08/29/24 20:00 Dose: Infused Documented By: Admin: 08/29/24 19:08 Dose: 400 mls/hr Documented By: SPF Lactated Ringer's (Lactated Ringers) 1,000 mls @ 42 mls/hr IV NOW ONE Stop: 08/30/24 19:32 Last Infusion: 08/29/24 23:47 Dose: Infused Documented By: Admin: 08/29/24 19:45 Dose: 42 mls/hr Documented By: EDUARDO Cefazolin Sodium/Dextrose (Ancef) 100 mls @ 200 mls/hr IV NOW ONE Stop: 08/29/24 22:46 Last Admin: 08/29/24 22:30 Dose: 200 mls/hr Documented By: PILAR Metoclopramide HCl (Metoclopramide Hcl 5 Mg Tablet) 10 mg PO NOW ONE Stop: 08/29/24 15:00 Last Admin: 08/29/24 15:03 Dose: 10 mg Documented By: LIT Oxycodone/Acetaminophen (Oxycodone/Acetaminophen 5/325 Tablet) 1 tab PO NOW ONE Stop: 08/29/24 14:58 Last Admin: 08/29/24 15:04 Dose: 1 tab Documented By: LIT Vital Signs Vital signs: Vital Signs - 8 hr 08/29/24 14:37 Temperature 98.7 F Pulse Rate 73 Respiratory Rate 18 Blood Pressure 104/53 L Pulse Oximetry 98 Oxygen Delivery Method Room Air MDM - Extremity Injury (Upper) <Rob Leavitt PA-C - Last Filed: 08/30/24 11:53> Lab Data 08/29/24 15:59 08/29/24 15:59 Labs: Lab Results 08/29/24 Range/Units 15:59 WBC 6.8 (4.5-11.0) X10^3/uL RBC 4.12 (4.0-5.2) X10^6/uL Hgb 12.2 (12.0-16.0) g/dL Hct 35.7 L (36-46) % MCV 86.6 (80-100) fL MCH 29.6 (26-34) PG MCHC 34.2 (30-36) % RDW 12.7 (11.6-14.8) % Plt Count 276 (150-400) X10^3/uL Neut % (Auto) 70.4 (50-75) % Lymph % (Auto) 24.2 L (25-40) % [place] % (Auto) 4.2 (3-14) % Eos % (Auto) 0.5 L (2-4) % Baso % (Auto) 0.7 (0-2) % Neut # (Auto) 4800 (1041-0150) /uL Lymph # (Auto) 1600 (9368-1642) /uL [place] # (Auto) 300 (0-900) /uL Eos # (Auto) 0 (0-450) /uL Baso # (Auto) 0 (0-100) /uL PT 11.4 (9.4-12.5) SECONDS INR 1.0 (0.9-1.3) APTT 26 (25.1-36.5) SECONDS Sodium 136 L (137-145) mmol/L Potassium 4.0 (3.4-5.1) mmol/L Chloride 105 (98-107) mmol/L Carbon Dioxide 24 (22-32) mmol/L BUN 17 (7-17) mg/dL Creatinine 0.79 (0.52-1.04) mg/dL Estimated GFR > 60 (>60) mL/min BUN/Creatinine Ratio 21.5 (6-22) Glucose 108 H (70-100) mg/dL Calcium 8.8 (8.4-10.2) mg/dL Total Bilirubin 0.5 (0.2-1.3) mg/dL AST 34 (14-36) IU/L ALT 18 (<35) IU/L Alkaline Phosphatase 61 (38-126) U/L Total Protein 7.4 (6.3-8.2) g/dL Albumin 4.6 (3.5-5.0) g/dL Globulin 2.8 (1.7-4.1) g/dL Albumin/Globulin Ratio 1.6 (1.0-2.8) MDM Narrative Medical decision making narrative: 54-year-old female with past medical history dyslipidemia, ADHD, autism spectrum disorder, anxiety, depression, migraine presents to the ED status post a left middle finger injury sustained just prior to arrival. Physical exam is significant for what appears to be a left middle finger tip amputation. A very small amount of tissue on the dorsal aspect is attached. X-ray shows a comminuted, displaced fracture of the 3rd phalanx tuft. Patient's pain and nausea controlled with Percocet, Reglan, Dilaudid. Tetanus updated. Patient started on Ancef. Patient had rings on digits 2 and 4 of the left hand which were successfully removed. Dr. Flores from ortho was consulted, she will take patient to the OR for repair. Findings and plan discussed with patient. She is amenable to the plan. Medical records reviewed: Yes <Danna Parsons DO - Last Filed: 08/30/24 19:05> Lab Data Labs: Lab Results 08/29/24 Range/Units 15:59 WBC 6.8 (4.5-11.0) X10^3/uL RBC 4.12 (4.0-5.2) X10^6/uL Hgb 12.2 (12.0-16.0) g/dL Hct 35.7 L (36-46) % MCV 86.6 (80-100) fL MCH 29.6 (26-34) PG MCHC 34.2 (30-36) % RDW 12.7 (11.6-14.8) % Plt Count 276 (150-400) X10^3/uL Neut % (Auto) 70.4 (50-75) % Lymph % (Auto) 24.2 L (25-40) % [place] % (Auto) 4.2 (3-14) % Eos % (Auto) 0.5 L (2-4) % Baso % (Auto) 0.7 (0-2) % Neut # (Auto) 4800 (7115-7478) /uL Lymph # (Auto) 1600 (6971-8809) /uL [place] # (Auto) 300 (0-900) /uL Eos # (Auto) 0 (0-450) /uL Baso # (Auto) 0 (0-100) /uL PT 11.4 (9.4-12.5) SECONDS INR 1.0 (0.9-1.3) APTT 26 (25.1-36.5) SECONDS Sodium 136 L (137-145) mmol/L Potassium 4.0 (3.4-5.1) mmol/L Chloride 105 (98-107) mmol/L Carbon Dioxide 24 (22-32) mmol/L BUN 17 (7-17) mg/dL Creatinine 0.79 (0.52-1.04) mg/dL Estimated GFR > 60 (>60) mL/min BUN/Creatinine Ratio 21.5 (6-22) Glucose 108 H (70-100) mg/dL Calcium 8.8 (8.4-10.2) mg/dL Total Bilirubin 0.5 (0.2-1.3) mg/dL AST 34 (14-36) IU/L ALT 18 (<35) IU/L Alkaline Phosphatase 61 (38-126) U/L Total Protein 7.4 (6.3-8.2) g/dL Albumin 4.6 (3.5-5.0) g/dL Globulin 2.8 (1.7-4.1) g/dL Albumin/Globulin Ratio 1.6 (1.0-2.8) Discharge Plan Departure Patient Disposition: Admitted as Observation Clinical Impression: Traumatic amputation of fingertip Qualifiers: Encounter type: initial encounter Qualified Code(s): S68.119A - Complete traumatic metacarpophalangeal amputation of unspecified finger, initial encounter Admit Date/Time: 08/29/24 16:27 Admit Provider: Lara Flores ED Sign-out <Danna Parsons DO - Last Filed: 08/30/24 19:05> Cosign ED Attending Cosignature Attestation: Case discussed with the myself, imaging was reviewed, plan for consultation with the Orthopedic surgery for OR.
[2024-08-29 16:12] LABS: Add Manual Diff / Slide Review NO; Basophils Absolute Auto 0 /uL (0-100); Basophils Percent Auto 0.7 % (0-2); Eosinophils Absolute Auto 0 /uL (0-450); Eosinophils Percent Auto 0.5 % (2-4); Hematocrit 35.7 % (36-46); Hemoglobin 12.2 g/dL (12.0-16.0); Lymphocytes Absolute Auto 1600 /uL (1100-4500); Lymphocytes Percent Auto 24.2 % (25-40); Mean Corpuscular HGB Conc 34.2 % (30-36); Mean Corpuscular Hemoglobin 29.6 PG (26-34); Mean Corpuscular Volume 86.6 fL (80-100); Monocytes Absolute Auto 300 /uL (0-900); Monocytes Percent Auto 4.2 % (3-14); Neutrophils Absolute Auto 4800 /uL (1500-7000); Neutrophils Percent Auto 70.4 % (50-75); Platelet Count 276 X10^3/uL (150-400); Red Blood Cell Count 4.12 X10^6/uL (4.0-5.2); Red Cell Distribution Width 12.7 % (11.6-14.8); White Blood Cell Count 6.8 X10^3/uL (4.5-11.0)
[2024-08-29] MEDS: HYDROMORPHONE 1 MG INJ IV (16:12)
[2024-08-29 16:13] LABS: Prothrombin Time 11.4 SECONDS (9.4-12.5)
[2024-08-29 16:16] LABS: PTT Partial Thromboplastin Tim 26 SECONDS (25.1-36.5)
[2024-08-29 16:17] LABS: Alanine Aminotransferase 18 IU/L (<35); Albumin 4.6 g/dL (3.5-5.0); Albumin Globulin Ratio 1.6 (1.0-2.8); Alkaline Phosphatase 61 U/L (38-126); Aspartate Aminotransferase 34 IU/L (14-36); BUN Creatinine Ratio 21.5 (6-22); Bilirubin Total 0.5 mg/dL (0.2-1.3); Blood Urea Nitrogen 17 mg/dL (7-17); Calcium 8.8 mg/dL (8.4-10.2); Carbon Dioxide 24 mmol/L (22-32); Chloride 105 mmol/L (98-107); Estimated Glomerular Filt Rate > 60 mL/min (>60); Globulin 2.8 g/dL (1.7-4.1); Glucose 108 mg/dL (70-100); HEMOLYSIS 61 (0-50); Sodium 136 mmol/L (137-145); Total Protein 7.4 g/dL (6.3-8.2)
[2024-08-29] MEDS: TET,DIPH,PERTUSS(ACELL),VAC/PF 0.5 ML SYRINGE IM (16:17)
[2024-08-29] MEDS: CEFAZOLIN VIAL 2 GM in SODIUM CHLORIDE 0.9% 100 ML IV (16:32)
--- NOTE | 2024-08-29 18:02 | PM.HP.1 ---
History of Present Illness History of Present Illness Date Patient Seen: 08/29/24 Time Patient Seen: 18:05 Date of Onset of Symptoms: 08/29/24 Chief complaint: finger laceration Narrative: This is a 54-year-old female who was trimming some hedges home in the garden today when she accidentally caught her left middle finger. She noted the acute onset of severe left finger pain and bleeding. She came immediately to the hospital with a partial fingertip near amputation. She is right-hand dominant. FOR[facility]LY [facility], [facility] Medical History Dyslipidemia Postmenopausal HRT (hormone replacement therapy) Autism spectrum disorder 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, requiring support (level 1) ADHD, predominantly inattentive type Increased risk of breast cancer Mixed hyperlipidemia (02/2021) Anxiety (2006) Depression (2006) PVC (premature ventricular contraction) (2006) Encounter for wellness examination in adult Migraine without aura (1999) Possible exposure to STD Surgical History Status post delivery (10/24/03) Family History Father Age: 81 Hyperlipidemia Detached retina Suspected autism disorder Grandfather Alzheimer's dementia without behavioral disturbance, unspecified timing of dementia onset Cerebrovascular accident (CVA), unspecified mechanism Grandmother Malignant neoplasm of female breast, unspecified laterality, unspecified site of breast Cardiac arrhythmia Hypotension Sister Age: 48 Anxiety Skin cancer Grandmother Suspected autism disorder Memory deficit Social History household members: spouse Smoking Status: Never smoker alcohol intake: never Meds Home Medications and Allergies Home Medications Medication Instructions Recorded Confirmed Type phenazopyridine 100 mg tablet 200 mg (2 x 100 mg) PO TID PRN 01/04/21 07/27/24 Rx (Pyridium) pain 6 doses #6 tabs phytosterol 300 mg-pantethine 100 cap PO .qd 08/05/22 07/27/24 History mg capsule (CholestOff Complete) albuterol sulfate 90 mcg/actuation 2 puff inhalation Q6H PRN 09/14/23 07/27/24 Rx aerosol inhaler shortness of breath or wheezing #8 grams progesterone micronized 200 mg 200 mg PO BEDTIME #90 caps 09/24/23 07/27/24 Rx capsule (Prometrium) escitalopram oxalate 20 mg tablet 20 mg PO DAILY #90 tabs 01/02/24 07/27/24 Rx (Lexapro) estradiol 1 mg tablet 1 mg PO DAILY #90 tabs 02/15/24 07/27/24 Rx metoprolol tartrate 25 mg tablet 12.5 mg (1/2 x 25 mg) PO DAILY #45 02/15/24 07/27/24 Rx tabs valacyclovir 500 mg tablet 500 mg PO BID #30 tabs 02/29/24 07/27/24 Rx (Valtrex) atomoxetine 40 mg capsule 40 mg PO BID ADHD #60 caps 04/22/24 07/27/24 Rx buspirone 10 mg tablet 10 mg PO BID #60 tabs 07/01/24 07/27/24 Rx Allergies Allergy/AdvReac Type Severity Reaction Status Date / Time aspartame [ASPARTAME] Allergy Unknown Verified 02/15/24 09:01 codeine [CODEINE] Allergy Unknown Verified 02/15/24 09:01 erythromycin base Allergy Unknown Verified 02/15/24 09:01 [ERYTHROMYCIN BASE] hydroxyzine AdvReac Intermediate drowsiness Verified 02/15/24 09:01 Review of Systems Review of Systems Narrative: She has been otherwise healthy recently, no new medical issues Exam Vital Signs (past 8 hours): - 08/29/24 14:37 08/29/24 17:19 Temperature 98.7 F Pulse Rate 73 76 Respiratory Rate 18 15 Blood Pressure 104/53 L 101/60 Pulse Oximetry 98 99 Oxygen Delivery Method Room Air Room Air Oxygen Delivery Method Room Air Narrative Exam Narrative: HEENT is benign, lungs are clear cor regular rate and rhythm, abdomen soft and benign, the left upper extremity is remarkable for a significant finger tip injurywhich shows a complex laceration through the distal phalanx and a near complete amputation, the residual tip does appear to be viable there is some capillary refill Objective Labs 08/29/24 15:59 08/29/24 15:59 Labs: Laboratory Results - last 24 hr 08/29/24 15:59 WBC 6.8 RBC 4.12 Hgb 12.2 Hct 35.7 L MCV 86.6 MCH 29.6 MCHC 34.2 RDW 12.7 Plt Count 276 Neut % (Auto) 70.4 Lymph % (Auto) 24.2 L Wallace % (Auto) 4.2 Eos % (Auto) 0.5 L Baso % (Auto) 0.7 Neut # (Auto) 4800 Lymph # (Auto) 1600 Wallace # (Auto) 300 Eos # (Auto) 0 Baso # (Auto) 0 PT 11.4 INR 1.0 APTT 26 Sodium 136 L Potassium 4.0 Chloride 105 Carbon Dioxide 24 BUN 17 Creatinine 0.79 Estimated GFR > 60 BUN/Creatinine Ratio 21.5 Glucose 108 H Calcium 8.8 Total Bilirubin 0.5 AST 34 ALT 18 Alkaline Phosphatase 61 Total Protein 7.4 Albumin 4.6 Globulin 2.8 Albumin/Globulin Ratio 1.6 x-rays show a middle finger distal phalanx fracture which is slightly comminuted and grossly displaced Assessment & Plan Assessment and plan (1) Traumatic amputation of fingertip: Qualifiers: Encounter type: initial encounter Qualified Code(s): S68.119A - Complete traumatic metacarpophalangeal amputation of unspecified finger, initial encounter Status: Acute (2) Autism spectrum disorder 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, requiring support (level 1): Status: Acute (3) ADHD, predominantly inattentive type: Status: Acute Plan her finger tip does appear to be likely viable. She does have some capillary refill. I have recommended open reduction internal fixation with the plan to fix the tip with K-wire and repair as needed. I did tell her that if it does not appear viable we may do a completion amputation and closure. The procedure options risks benefits and complications were discussed in detail. We are going to go ahead and proceed with that on an urgent basis. Time-Based Coding :: [TOTAL MINUTES] spent with patient and on the chart (including review of chart, obtaining history, exam, reviewing outside data, placing orders, documenting exam and treatment plan, and counseling patient) on [DATE].
[2024-08-29] MEDS: ACETAMINOPHEN IV 1,000 MG/100 ML VIAL 400 MG IV (19:08)
[2024-08-29] MEDS: LACTATED RINGERS 1,000 ML 42 ML IV (19:45)
--- NOTE | 2024-08-29 21:29 | PM.OP.1 ---
Operative Date/Time/Diagnoses Date of procedure: 08/29/24 Time of procedure: 22:10 Pre-op diagnosis: Left middle finger open fracture, near amputation Post-op diagnosis: same Procedure & Clinicians Procedure: Irrigation and debridement open fracture left middle finger, open reduction internal fixation distal phalanx fracture middle finger, repair complex finger tip wound and nail bed Same procedure as scheduled: Yes Indications: This is a 54-year-old female who was using a power driven hair spring cutter the yd when she accidentally caught her left middle finger and sustained a severe laceration with an open fracture and near amputation of her distal tip of her left middle finger. She came to the emergency room. Did look like the tip was likely viable. It was brought to the operating room for open reduction internal fixation as needed possible completion amputation and closure. The procedure options risks benefits and complications were discussed in detail. Surgeon: Lara Flores Click Yes if Unassisted: Yes Anesthesia Type: General Operative Notes Findings: Adequate reduction, viable appearing tip, adequate fixation and closure Closure Type: primary Specimen(s): none sent Prosthetic devices, grafts, tissues, transplants, or devices: K-wire one 0.54 k wire Estimated Blood Loss (mL): 10 Blood products transfused: none Procedure in detail: Patient was brought the operating room. Time-out was performed. She underwent induction of general anesthesia. She was given a repeat dose of IV antibiotics. Her left upper extremity was carefully prepped and draped in standard sterile fashion. Her middle finger was meticulously irrigated and very gently debrided removing some comminuted bone fragments and small amount of contamination. Her distal phalanx fracture was then meticulously reduced. It was carefully fixed with one 0.54 K-wire. The reduction and hardware placement was carefully checked with the mini C-arm. The K-wire was cut and bent. The wound was then meticulously closed with interrupted nylon and nail bed repair was performed with chromic sutures. A dense digital block was performed. The wound was carefully dressed sterilely. She was placed in a finger splint. Patient tolerated the procedure well she was transferred to recovery room in satisfactory condition. Complications none. Complications: none Post-operative Condition: stable Disposition: Acute Care Plan for aftercare: Return to clinic 10-14 days for a wound check and possible suture removal, leave the pin in for 4-6 weeks, get a check x-ray at her follow up appointment AP and lateral of the left middle finger, okay to take the brace off for the x-ray
[2024-08-29] MEDS: CEFAZOLIN 2 GM/100 ML PREMIX 100 ML IV (22:30)
--- NOTE | 2024-08-29 22:44 | SUR.OPER ---
Supine on padded OR bed, head on pillow, right arm secured on padded arm board at <90 degrees abduction, left arm on hand table, legs uncrossed, safety belt at thigh, tape over blanket over lower legs.
[2024-08-29] MEDS: BUPIVACAINE 0.5% (PF) 30 ML VIAL INJ (22:50)
== END 2024-08-29 23:54 | disposition home or self-care (01) ==
LOC: ED 14:57 → AC 16:28
PROVIDERS: Admitting Provider Orthopaedic Surgery; Emergency Provider Student in an Organized Health Care Education/Training Program; PCP Registered Nurse Diabetes Educator; Referring Provider Student in an Organized Health Care Education/Training Program; Visit Provider Orthopaedic Surgery
PROC: (CPT 26765; principal; 2024-08-29 21:00)
DX: S62.633B Displaced fracture of distal phalanx of left middle finger, initial encounter for open fracture (principal); W29.3XXA Contact with powered garden and outdoor hand tools and machinery, initial encounter; F84.0 Autistic disorder; F90.9 Attention-deficit hyperactivity disorder, unspecified type; F41.8 Other specified anxiety disorders; E78.5 Hyperlipidemia, unspecified
CPT/HCPCS: 26765; 36415; 73140; 80053; 85025; 85610; 85730; 90471; 96365; 96375; 99284; G0378; 90715; C1713; J0131; J0690; J1100; J1171; J1885; J2250; J2405; J2704; J3010

== ENCOUNTER → 2024-09-09 08:05 | Outpatient (CLI) | payer OTHER, SELFPAY ==
[2024-09-09 09:57] LABS: Cholesterol 253 mg/dL (140-199); HDL Cholesterol 54 mg/dL (40-60); LDL Cholesterol Calculated 171 mg/dL (<100); Triglycerides 142 mg/dL (35-150)
[2024-09-09 10:23] LABS: TSH w/ Reflex to FT4 1.11 uIU/mL (0.47-4.68)
== END ==
PROVIDERS: PCP Registered Nurse Diabetes Educator; Referring Provider Registered Nurse Diabetes Educator; Visit Provider Registered Nurse Diabetes Educator
DX: Z00.00 Encounter for general adult medical examination without abnormal findings (principal); E78.2 Mixed hyperlipidemia
CPT/HCPCS: 36415; 80061; 84443

== ENCOUNTER 2024-10-05 12:34 | Day surgery (SDC) | payer OTHER, SELFPAY ==
[2024-10-05] VITALS (7 sets, daily range): BP systolic 117–133; BP diastolic 68–78; PULSE 70–89; RESP 14–18; TEMP 36.2–36.8; O2SAT 98–100; BMI 18.9; BMI 21.2
--- NOTE | 2024-10-05 14:36 | PM.PREOP ---
Pre-operative Note Interval Note History & Physical reviewed/Exam performed by Physician: Yes Changes to H&P: No
[2024-10-05] MEDS: LACTATED RINGERS 1,000 ML 42 ML IV (14:55)
--- NOTE | 2024-10-05 14:56 | P.OP_ITS ---
Operative Date/Time/Diagnoses Date of procedure: 10/05/24 Time of procedure: 14:56 Pre-op diagnosis: Traumatic amputation tip finger with necrosis Post-op diagnosis: same Procedure & Clinicians Procedure: Revision amputation left middle finger CPT code 14365 modifier 58 for more extensive procedure Same procedure as scheduled: Yes Indications: Patient is a 54-year-old right-hand dominant female that had a saw injury to her left middle finger tip several weeks ago she had an attempted digit salvage with another surgeon however her tissue has gone on to necrosis and she was requiring a more extensive procedure at this time which is a revision amputation of her left middle finger tip. The risks and benefits of the procedure have been d iscussed with the patient and given the opportunity to ask questions. The risks of surgery include but are not limited to infection, malunion, nonunion, persistence of pain, damage to nerves and blood vessels, posttraumatic arthritis, DVT, PE, coardiopulmonary complications and . The patient expressed a thorough understanding of the risks and benefits of surgery and has elected to proceed. Consent was signed. We discussed revision amputation through the D IP joint as there is devitalized black necrotic tissue throughout the length of the nail bed to nearly the level of the D IP joint Surgeon: Vesta Rangel Click Yes if Unassisted: Yes Anesthesia Type: General and Local Operative Notes Findings: Necrotic left middle finger tip with dry gangrene nearly to the level of the D IP joint. PIP joint benign. Closure Type: primary Specimen(s): none sent Estimated Blood Loss (mL): 2 Blood products transfused: none Tourniquet time (min): 0 Procedure in detail: Patient was seen in the preoperative area the site of surgery was marked informed consent confirmed this was the left middle finger. Patient was then brought back to the operating room by the anesthesia team positioned supine on operative table. A hand table was placed on the operative side. Bony prominen cecile well padded. The left upper extremity was prepped and draped in standard sterile fashion a formal time-out procedure was performed confirming the patient's side and site of surgery administration of appropriate preoperative antibiotic. All were in agreement. Attention was turned to the left middle finger. 8 cc of 0.25% Marcaine with epinephrine was injected for local anesthesia then a metacarpal block and digital block. The end of the glove was cut off and rolled into a tourniquet this was applied. Next the level of the DIPJ joint was marked out on the skin. A fishmouth type incision just distal to this was made proximal to the necrotic fingertip and taken in definitive fashion full-thickness through the skin subcutaneous tissues down to the level bone. The distal phalanx was disarticulated through the D IP joint and removed. Then a rongeur was used to round out the condyles of the middle phalanx. The flexor and extensor tendons were cut and allowed to retract. The medial and lateral neurovascular bundles were identified dissected the vein and artery were cauterized and the nerve was cut under tension allowed to retract. Once this was completed the skin flaps were fashioned excess tissue was trimmed. The wound was irrigated and closed with 4-0 Monocryl and 5 0 nylon. The glove tourniquet was released prior to final closure and hemostasis was achieved. The digit pinked up nicely. A sterile dressing was applied with Xeroform, Trevor and Coban. The patient was awoken from anesthesia and taken to the recovery unit in good condition there were no immediate complications from this procedure. Counts were correct. Complications: none Post-operative Condition: stable Disposition: PACU Plan for aftercare: Soft dressing will remain in place. Keep dressing clean dry and intact. If it becomes soiled can rewrap with a new clean dressing. Stitches will stay in place until follow up in Orthopedic Clinic in approximately 2 weeks. May do full range of motion of the digit and hand as tolerated.
[2024-10-05] MEDS: CEFAZOLIN 2 GM/100 ML PREMIX 100 ML IV (15:08)
--- NOTE | 2024-10-05 15:26 | SUR.OPER ---
Supine on padded OR bed, head on pillow, right arm secured on padded arm boards at <90 degrees abduction, operative arm on padded OR board, legs uncrossed, safety belt at thigh, tape over blanket over lower legs. in room, approved positioning, all pressure points padded
[2024-10-05] MEDS: BUPIVACAINE 0.25% W/ EPI 30 ML VIAL 60 ML INJ (15:33)
== END 2024-10-05 16:55 | disposition home or self-care (01) ==
PROVIDERS: PCP Registered Nurse Diabetes Educator; Referring Provider Orthopaedic Surgery Foot and Ankle Surgery; Visit Provider Orthopaedic Surgery Foot and Ankle Surgery
PROC: (CPT 26951; principal; 2024-10-05 14:15)
DX: S68.613A Complete traumatic transphalangeal amputation of left middle finger, initial encounter (principal); I96 Gangrene, not elsewhere classified; W31.2XXA Contact with powered woodworking and forming machines, initial encounter
CPT/HCPCS: 26951; J0690; J1100; J1885; J2250; J2405; J2704; J3010

== ENCOUNTER → 2024-11-01 16:06 | Outpatient (CLI) | payer OTHER, SELFPAY ==
[2024-11-01 17:02] LABS: Add Manual Diff / Slide Review NO; Basophils Absolute Auto 0 /uL (0-100); Basophils Percent Auto 0.6 % (0-2); Eosinophils Absolute Auto 100 /uL (0-450); Eosinophils Percent Auto 0.8 % (2-4); Hemoglobin 12.2 g/dL (12.0-16.0); Lymphocytes Absolute Auto 2100 /uL (1100-4500); Lymphocytes Percent Auto 32.8 % (25-40); Mean Corpuscular HGB Conc 33.8 % (30-36); Mean Corpuscular Hemoglobin 29.9 PG (26-34); Mean Corpuscular Volume 88.5 fL (80-100); Monocytes Absolute Auto 400 /uL (0-900); Monocytes Percent Auto 6.6 % (3-14); Neutrophils Absolute Auto 3900 /uL (1500-7000); Neutrophils Percent Auto 59.2 % (50-75); Platelet Count 290 X10^3/uL (150-400); Red Blood Cell Count 4.08 X10^6/uL (4.0-5.2); Red Cell Distribution Width 12.9 % (11.6-14.8); White Blood Cell Count 6.6 X10^3/uL (4.5-11.0)
[2024-11-01 17:25] LABS: HEMOLYSIS < 15 (0-50); Iron 115 ug/dL (37-170)
[2024-11-01 17:41] LABS: Percent Iron Saturation 47 % (15-50); Total Iron Binding Capacity 244 ug/dL (265-497); Transferrin 217 mg/dL (206-381)
[2024-11-01 18:01] LABS: Ferritin 29 ng/mL (11-264)
[2024-11-01 18:21] LABS: Vitamin B12 Reflex MMA if <400 460 pg/mL (239-931)
== END ==
PROVIDERS: PCP Registered Nurse Diabetes Educator; Referring Provider Physician Assistant; Visit Provider Physician Assistant
DX: G25.81 Restless legs syndrome (principal)
CPT/HCPCS: 36415; 82607; 82728; 83540; 83550; 85025

== ENCOUNTER → 2025-04-08 09:49 | Outpatient (CLI) | payer OTHER, SELFPAY ==
--- NOTE | 2025-04-08 09:52 | DI.MG.S_ITS ---
MM screening mammo BI: 04/08/2025. BI-RADS: 1 CLINICAL: 54-year old female for bilateral screening mammogram. Tyrer-Cuzick lifetime risk of 14.5%. No personal or first-degree family history of breast cancer. Current reported family history of breast cancer: maternal grandmother. PRIOR EXAMS 02/29/2024, 10/03/2022, 09/19/2022, 03/22/2022. MAMMOGRAPHY TECHNIQUE: 2D and 3D (tomosynthesis) digital mammographic views obtained, with additional images as needed for full coverage. Current study was also evaluated with a Computer Aided Detection (CAD) system. DENSITY C. The breasts are heterogeneously dense, which may obscure small masses. MAMMOGRAPHY FINDINGS Bilateral: No suspicious mass, asymmetry, microcalcification, or other abnormality seen. IMPRESSION: * No evidence of malignancy. RECOMMENDATIONS Bilateral * Annual screening mammography. OVERALL ASSESSMENT CATEGORY BI-RADS-1: Negative. The [employer] recommends annual screening mammography beginning at age 40 for women with average risk of breast cancer. ELECTRONICALLY SIGNED: Karlos Payan M.D. on 04/10/2025 at 08:27:49 AM PT Interpreting Station ID: [id number]
== END ==
PROVIDERS: PCP Registered Nurse Diabetes Educator; Referring Provider Registered Nurse Diabetes Educator; Visit Provider Registered Nurse Diabetes Educator
DX: Z12.31 Encounter for screening mammogram for malignant neoplasm of breast (principal); R92.333 Mammographic heterogeneous density, bilateral breasts; Z80.3 Family history of malignant neoplasm of breast
CPT/HCPCS: 77063; 77067